=== PATIENT | male | born 1990 | race Two or more races ===

== ENCOUNTER 2017-02-08 15:32 | Emergency (ER) | payer OTHER ==
[~2017-02-08] VITALS: Ht 172.7 cm; Wt 75.7 kg
[2017-02-08] MEDS ORDERED: IBUPROFEN600 MG ORAL (16:26)
--- NOTE | 2017-02-08 16:42 | Diagnostic Imaging Report ---
Indications: PAIN left knee pain last injury Technique: Three views of the left knee Comparison: None Findings: No acute fractures. No dislocations. Joint spaces are preserved. No radiopaque foreign body. Normal mineralization. Impression: No acute process
[2017-02-08 16:50] VITALS: BP 101/67
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
== END 2017-02-08 16:50 | disposition home or self-care (01) ==
LOC: EMR 16:31
DX: S83.92XA Sprain of unspecified site of left knee, initial encounter (principal); Y93.F2 Activity, caregiving, lifting; Y92.238 Other place in hospital as the place of occurrence of the external cause; Y99.0 Civilian activity done for income or pay
CPT/HCPCS: 29530; 99283

== ENCOUNTER 2017-04-20 11:41 | Emergency (ER) | payer OTHER ==
[~2017-04-20] VITALS: Ht 172.7 cm; Wt 68.0 kg
[~2017-04-20 11:41] MED LIST: IBUPROFEN600 MG ORAL
[2017-04-20 12:04] VITALS: BP 98/55
[2017-04-20] MEDS ORDERED: NAPROXEN500 M1 ORAL (12:11)
[2017-04-20] MEDS ORDERED: AUGMENTIN 875-1 EAC1 ORAL (12:11)
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
[2017-04-20] MEDS ORDERED: Bacitracin Oint UD TOPIC ONE (12:15)
[2017-04-20] MEDS ORDERED: Naproxen 500mg tab ORAL ONE (12:15)
[2017-04-20 12:31] VITALS: BP 98/55
== END 2017-04-20 12:31 | disposition home or self-care (01) ==
LOC: EMR 12:25
DX: S21.042A Puncture wound with foreign body of left breast, initial encounter (principal); Y04.1XXA Assault by human bite, initial encounter; Y93.F9 Activity, other caregiving; Y92.239 Unspecified place in hospital as the place of occurrence of the external cause; Y99.0 Civilian activity done for income or pay
CPT/HCPCS: 99283

== ENCOUNTER 2018-01-04 14:30 | Emergency (ER) | payer MEDICAID, OTHER ==
[~2018-01-04] VITALS: Ht 172.7 cm; Wt 72.6 kg
[~2018-01-04 14:30] MED LIST changes: +AUGMENTIN 875-1 EAC1 ORAL; +NAPROXEN500 M1 ORAL
[2018-01-04 14:39] VITALS: BP 108/72
[2018-01-04] MEDS ORDERED: TRUVADA 200 MG1 EAC1 ORAL (14:58)
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
[2018-01-04 15:10] VITALS: BP 115/70
== END 2018-01-04 15:12 | disposition home or self-care (01) ==
LOC: EMR 14:45
DX: Z20.6 Contact with and (suspected) exposure to human immunodeficiency virus [HIV] (principal)
CPT/HCPCS: 99283